=== PATIENT | male | born 1995 | race Caucasian/White ===

== ENCOUNTER 2023-06-29 13:04 | Emergency (ER) | payer OTHER, SELFPAY ==
--- NOTE | ~2023-06-29 | CT_ITS ---
EXAMINATION: CT ABDOMEN AND PELVIS WITHOUT CONTRAST CLINICAL INFORMATION: Right flank pain; history of colicky pain. COMPARISON: None available. TECHNIQUE: Multidetector volumetric imaging was performed from the superior aspect of the liver through the pubic symphysis. Sagittal and coronal reformatted images were obtained on the technologist's workstation. This CT examination was performed using dose optimization techniques as appropriate, variously including the following: *Automated exposure control *Adjustment of mA and/or kV according to patient size (this includes techniques or standardized protocols for targeted exams where dose is matched to indication/reason for exam; i.e. extremities or head) *Use of iterative reconstruction technique DLP: 362 mGy-cm FINDINGS: LUNG BASES: The visualized lung bases are unremarkable. LIVER, GALLBLADDER, AND BILIARY TREE: The liver is normal in size, shape, and attenuation. No focal hepatic lesion or biliary ductal dilatation is present. The gallbladder is unremarkable with no evidence of radiopaque gallstones, gallbladder wall thickening, or obvious pericholecystic inflammatory changes. PANCREAS: Unremarkable. SPLEEN: Unremarkable. ADRENAL GLANDS: Unremarkable. KIDNEYS AND URETERS: The kidneys are normal in size, shape, and attenuation. At the upper pole of the right kidney (3:249), a 3 mm nonobstructing calculus is seen. At the interpolar aspect of the right kidney (3:264, 291 and 295), 1 mm, 3 mm and 1 mm nonobstructing calculi are seen. There is moderate right hydronephrosis secondary to a 7 mm ovoid calculus seen at the ureteropelvic junction. At the upper pole of the left kidney (3:184), a 3 mm nonobstructing calculus is seen. There are adjacent 1 mm and 2 mm nonobstructing calculi (3:194 and 197). At the interpolar aspect of the left kidney (3:223 and 247), 5 mm and 3 mm nonobstructing calculi are seen. At the lower pole of the left kidney (3:275), a 6 mm nonobstructing calculus is seen. No left ureteric calculus or obstruction is noted. No significant perinephric stranding. BLADDER: Unremarkable. GASTROINTESTINAL TRACT: The small and large bowel are unremarkable. The appendix is unremarkable. ABDOMINAL WALL: No significant hernia is appreciated. LYMPH NODES: Normal. VASCULAR: Unremarkable. PELVIC VISCERA: The prostate and seminal vesicles are unremarkable. OSSEOUS STRUCTURES: Unremarkable. CT/CT abdomen pelvis wo IV con IMPRESSION: Multiple bilateral renal calculi are seen. There is moderate right hydronephrosis secondary to a 7 mm calculus situated at the ureteropelvic junction. Fleischner guidelines were followed.
[2023-06-29 13:09] VITALS: BP 132/80; BP 162/60; PULSE 101; PULSE 86; RESP 18; TEMP 35.9; O2SAT 100; O2SAT 98; BMI 20.3
[2023-06-29] MEDS: Ketorolac Tromethamine 30 MG/ML VIAL IM (13:36)
--- NOTE | 2023-06-29 13:40 | PC.NURSE ---
pt brought in via EMS with lower abdominal, lower right sided back pain. pt sts that he was diagnosed with an 8[facility] [place] Per pt he woke up around 1200 voided normally, then subsequently began having pain with hematuria. Per pt request, no IV intervention due to dx of PTSD. [employer] Misael Aware. toradol 30mg IM given per APR
[2023-06-29 13:44] VITALS: BP 131/76; PULSE 64; RESP 20; TEMP 36.6; O2SAT 98
[2023-06-29 13:57] LABS: Basophils Absolute Auto 0.1 X10*3/uL (0.0-0.2); Basophils Percent Auto 0.6 % (0-2); Eosinophils Absolute Auto 0.2 X10*3/uL (0.0-0.4); Eosinophils Percent Auto 2.2 % (0-4); Hematocrit 41.3 % (42.0-52.0); Hemoglobin 14.3 g/dl (14.0-18.0); Imm Gran Abs Auto 0.02 X10*3/uL (0.00-0.03); Imm Gran Pct Auto 0.3 % (0.0-0.4); Lymphocytes Absolute Auto 1.7 X10*3/uL (1.2-4.9); Lymphocytes Percent Auto 21.5 % (20-40); MANUAL DIFF FLAG NO; Mean Corpuscular HGB Conc 34.6 g/dl (31.0-36.0); Mean Corpuscular Hemoglobin 31.2 pg (27.0-33.0); Mean Corpuscular Volume 90.2 fL (80.0-98.0); Mean Platelet Volume 9.9 fL (9.4-12.4); Monocytes Absolute Auto 0.4 X10*3/uL (0.1-1.2); Monocytes Percent Auto 4.8 % (2-11); Neutrophils Absolute Auto 5.4 x10*3/uL (2.0-8.3); Neutrophils Percent Auto 70.6 % (45-73); Platelet Count 249 X10*3/uL (160-400); Red Blood Count 4.58 X10*6/uL (4.60-5.80); Red Cell Distribution Width 12.9 % (11.0-16.0); White Blood Count 7.7 X10*3/uL (4.8-10.8)
[2023-06-29] MEDS: hydrOXYzine HCL 50 MG TABLET PO (13:59)
--- NOTE | 2023-06-29 14:00 | ED_ITS ---
HPI - Abdominal Pain General Chief Complaint: Abdominal Pain Stated Complaint: PAIN TRYING TO PASS 8MM KIDNEY STONE PER EMS Time Seen by Provider: 06/29/23 13:07 Source: patient and EMS Mode of arrival: EMS Limitations: no limitations History of Present Illness HPI narrative: 27-year-old male with a history of PTSD, anxiety presents the ER with complaints of right-sided flank pain with radiates to the right abdomen for the last 2 days. Patient reports he was diagnosed [facility] with [facility]. He initially had vomiting. This is now resolved. No diarrhea, constipation. He did have some intermittent hematuria. No fevers or chills. Related Data Previous Rx's ?Medication ?Instructions ?Recorded oxycodone 5 mg tablet 5 mg PO Q8H PRN pain #9 tabs 06/29/23 Allergies Allergy/AdvReac Type Severity Reaction Status Date / Time No Known Allergies Allergy Verified 06/29/23 13:12 Review of Systems Review of Systems Yes all other systems are reviewed and are negative Constitutional: Reports no additional constitutional complaints, Denies body ache(s), Denies chills, Denies fever(s), Denies headache(s) and Denies weakness Eyes: Reports no additional eye complaints and Denies change in vision Reports system reviewed and no additional complaints, except as documented, Denies dizziness, Denies headache(s), Denies nasal congestion, Denies nasal discharge and Denies neck pain Cardiovascular: Reports no additional cardiovascular complaints, Denies chest pain, Denies leg edema and Denies dyspnea Respiratory: Reports no additional respiratory complaints, Denies cough and Denies dyspnea Gastrointestinal: Reports no additional gastrointestinal complaints, Reports abdominal pain, Denies diarrhea, Denies nausea and Denies vomiting Genitourinary: Reports hematuria and Denies urinary incontinence Musculoskeletal: Reports no additional musculoskeletal complaints, Reports back pain, Denies arthralgias, Denies joint swelling, Denies neck pain, Denies numbness and Denies tingling Skin/Breast: Reports system reviewed and no additional complaints, except as docu and Denies rash Reports system reviewed and no additional complaints, except as documented, Denies Abnormal speech present, Denies dizziness, Denies headache(s), Denies numbness, Denies tingling and Denies weakness [facility] Past Medical History Attestation statement: The following information was validated with the patient. Source: old records reviewed and nursing notes reviewed Social History Social History Smoked in Last 30 Days: No Advance Directives: No Advance Directives Information Provided: Yes Do you have a plan to hurt others: No Plan Physical Exam ED Vital Signs: Vital Signs - 24 hr 06/29/23 13:09 06/29/23 13:44 06/29/23 14:55 Temperature 96.7 F L 97.8 F 97.7 F Pulse Rate 86 64 64 Respiratory Rate 18 20 16 Blood Pressure 132/80 131/76 115/71 Pulse Oximetry 100 98 98 Oxygen Delivery Method Room Air Room Air Room Air BMI result Body Mass Index 20.3 Const General: cooperative, healthy appearing, comfortable and no acute distress Orientation/consciousness: patient oriented x3 Limitations: no limitations HENMT Head: Yes normal to inspection Ears: hearing grossly normal bilaterally General nose exam: Normal external nose present Face and sinus: Yes normal facial exam Mouth: Normal oral and palatal mucosa present Throat: Yes posterior oropharynx normal Eyes General: appearance normal, both eyes and all related structures Pupils: Equal, round and reactive pupils present Neck Neck: Yes normal visual inspection Chest Chest palpation & inspection: normal inspection of the chest Resp Effort & Inspection: normal respiratory effort Auscultation: clear to auscultation bilaterally Cardio Rate: regular rate Rhythm: regular rhythm Peripheral pulses: Peripheral pulses 2+ throughout GI Inspection: Yes normal to inspection Palpation (GI): Soft to palpation and Tenderness to palpation present (GI) in the RLQ Auscultation: normal bowel sounds General: Yes CVA tenderness (right ) Back/Spine/Pelvis Back: CVA tenderness (right ) Thoracic/Lumbar Spine: thoracic and lumbar spine normal to inspection Skin General skin exam: no rashes or lesions noted Neuro General: patient oriented x3, no focal motor deficits and normal sensation to monofilament Cranial nerves: Yes Equal, round and reactive pupils present Cognition (Neuro): normal cognition Speech: No Abnormal speech present Gait exam (Neuro): Normal gait present Motor exam (neuro): 5/5 motor strength present throughout Extrem General: Yes normal to inspection Course Course Course Narrative: 1530 CT shows IMPRESSION: Multiple bilateral renal calculi are seen. There is moderate right hydronephrosis secondary to a 7 mm calculus situated at the ureteropelvic junction. Urine pending. Still having pain, does not want IV. Will give IM morphine and re-assess. Reevaluation(s) Reevaluation #1: 1600-urine shows no signs of infection. Pain is well controlled. Patient is tolerating p.o.. I did explain the findings on the CT scan to the patient. He feels comfortable going home at this time. He will likely follow-up with [facility] however I did provide him our urologist number. I also sent his information to Dr. nAgulo via [employer]. Reviewed worrisome signs and symptoms of when to return to the emergency room. Comfortable plan for discharge home Of note patient has Flomax and ibuprofen at home Medical Decision Making Medical Decision Making MDM Narrative: 27-year-old male with a history of PTSD, anxiety presents the ER with complaints of right-sided flank pain with radiates to the right abdomen for the last 2 days.? Patient reports he was diagnosed at the [facility] with a kidney stone.? He initially had vomiting.? This is now resolved.? No diarrhea, constipation.? He did have some intermittent hematuria.? No fevers or chills. TTP RLQ, R CVAT Patient very anxious Will obtain labs, UA, CT Will provide analgesia. Severe needle phobia and does not want IV, okay labs and IM medications Differential Diagnosis Differential Diagnoses: The differential diagnosis associated with the presentation includes Renal colic, pyelonephritis Low suspicion for appendicitis as patient is status post appendectomy Admission/Observation Consideration of admission/observation: Escalation of care including admission/observation considered Patient with 7 mm kidney stone with moderate hydro with normal renal function and no signs of infection in urine with pain that is well controlled, tolerating p.o.. Can be discharged home with Urology outpatient follow-up. Consult Healthcare Provider Management of the patient was discussed with: Boardinghouse Keeper Patient's information was sent to Dr. Angulo from Urology for follow-up as needed Lab Data MDM Lab Attestation statement: I reviewed the patient's lab results. 06/29/23 13:51 06/29/23 13:51 Labs: Lab Results 06/29/23 06/29/23 Range/Units 13:51 15:23 WBC 7.7 (4.8-10.8) X10*3/uL RBC 4.58 L (4.60-5.80) X10*6/uL Hgb 14.3 (14.0-18.0) g/dl Hct 41.3 L (42.0-52.0) % MCV 90.2 (80.0-98.0) fL MCH 31.2 (27.0-33.0) pg MCHC 34.6 (31.0-36.0) g/dl RDW 12.9 (11.0-16.0) % Plt Count 249 (160-400) X10*3/uL MPV 9.9 (9.4-12.4) fL Immature Gran % (Auto) 0.3 (0.0-0.4) % Neut % (Auto) 70.6 (45-73) % Lymph % (Auto) 21.5 (20-40) % [place] % (Auto) 4.8 (2-11) % Eos % (Auto) 2.2 (0-4) % Baso % (Auto) 0.6 (0-2) % Lymph # (Auto) 1.7 (1.2-4.9) X10*3/uL [place] # (Auto) 0.4 (0.1-1.2) X10*3/uL Eos # (Auto) 0.2 (0.0-0.4) X10*3/uL Baso # (Auto) 0.1 (0.0-0.2) X10*3/uL Abs Immat Gran (auto) 0.02 (0.00-0.03) X10*3/uL Absolute Neuts (auto) 5.4 (2.0-8.3) x10*3/uL Absolute Nucleated RBC 0.000 (0.0-0.012) X10*3/uL Nucleated RBC % (auto) 0.0 (0.0-0.2) /100WBC Sodium 141 (135-145) mmol/L Potassium 4.2 (3.3-5.1) mmol/L Chloride 107 (96-108) mmol/L Carbon Dioxide 23 (22-29) mmol/L Anion Gap 15 (12-20) BUN 9 (9-16) mg/dL Creatinine 1.03 (0.5-1.4) mg/dL Estim Creat Clear Calc 87.8 Estimated GFR > 60 Random Glucose 122 H (60-115) mg/dL Calcium 9.6 (8.4-10.2) mg/dL Total Bilirubin 0.4 (0.0-1.0) mg/dL Direct Bilirubin 0.2 (0.0-0.5) mg/dL AST 13 (5-37) U/L ALT 11 (0-40) U/L Alkaline Phosphatase 70 (39-117) U/L Total Protein 7.0 (6.5-8.0) g/dL Albumin 4.3 (3.5-5.0) g/dL Lipase 19 (8-78) U/L Urine Color Yellow Urine Appearance Turbid Urine pH 7.0 (5.0-9.0) Ur Specific [place] 1.015 (1.005-1.025) Urine Protein Trace (Neg-Trace) mg/dL Urine Glucose (UA) Negative (Negative) mg/dL Urine Ketones Negative (Negative) mg/dL Urine Blood Large (3+) H (Negative) Urine Nitrite Negative (Negative) Ur Leukocyte Esterase Trace H (Negative) Urine RBC 11-20 H (0-2) /HPF Urine WBC 0-5 (0-5) /HPF Ur Squamous Epith Cells 0-2 (0-2) /HPF Urine Bacteria None Seen (None Seen) Hyaline Casts 0-2 (0-2) /LPF Independent Interpretation I performed an independent interpretation of an: CT Scan Interpretation: I independently reviewed the CT scan agree with the radiology report Radiology Impression Discussion of test interpretation with radiology: I have reviewed the radiologist's reading. Radiologist Impression: Launch?Image [place] [id number] CT Scan Report Signed Patient: Greg Merino MR#: [id number] : 1995 Acct:[id number] Age/Sex: 27 / M ADM Date: 06/29/23 Loc: HO.ED Attending Dr: Ordering Physician: Carola Gilmore NP Date of Service: 06/29/23 Procedure(s): CT abdomen pelvis wo IV con Accession Number(s): [id number] cc: Physician,Unknown ; Carola Gilmore NP~ EXAMINATION: CT ABDOMEN AND PELVIS WITHOUT CONTRAST CLINICAL INFORMATION: Right flank pain; history of colicky pain. COMPARISON: None available. TECHNIQUE: Multidetector volumetric imaging was performed from the superior aspect of the liver through the pubic symphysis. Sagittal and coronal reformatted images were obtained on the technologist's workstation. This CT examination was performed using dose optimization techniques as appropriate, variously including the following: *Automated exposure control *Adjustment of mA and/or kV according to patient size (this includes techniques or standardized protocols for targeted exams where dose is matched to indication/reason for exam; i.e. extremities or head) *Use of iterative reconstruction technique DLP: 362 mGy-cm FINDINGS: LUNG BASES: The visualized lung bases are unremarkable. LIVER, GALLBLADDER, AND BILIARY TREE: The liver is normal in size, shape, and attenuation. No focal hepatic lesion or biliary ductal dilatation is present. The gallbladder is unremarkable with no evidence of radiopaque gallstones, gallbladder wall thickening, or obvious pericholecystic inflammatory changes. PANCREAS: Unremarkable. SPLEEN: Unremarkable. ADRENAL GLANDS: Unremarkable. KIDNEYS AND URETERS: The kidneys are normal in size, shape, and attenuation. At the upper pole of the right kidney (3:249), a 3 mm nonobstructing calculus is seen. At the interpolar aspect of the right kidney (3:264, 291 and 295), 1 mm, 3 mm and 1 mm nonobstructing calculi are seen. There is moderate right hydronephrosis secondary to a 7 mm ovoid calculus seen at the ureteropelvic junction. At the upper pole of the left kidney (3:184), a 3 mm nonobstructing calculus is seen. There are adjacent 1 mm and 2 mm nonobstructing calculi (3:194 and 197). At the interpolar aspect of the left kidney (3:223 and 247), 5 mm and 3 mm nonobstructing calculi are seen. At the lower pole of the left kidney (3:275), a 6 mm nonobstructing calculus is seen. No left ureteric calculus or obstruction is noted. No significant perinephric stranding. BLADDER: Unremarkable. GASTROINTESTINAL TRACT: The small and large bowel are unremarkable. The appendix is unremarkable. ABDOMINAL WALL: No significant hernia is appreciated. LYMPH NODES: Normal. VASCULAR: Unremarkable. PELVIC VISCERA: The prostate and seminal vesicles are unremarkable. OSSEOUS STRUCTURES: Unremarkable. CT/CT abdomen pelvis wo IV con IMPRESSION: Multiple bilateral renal calculi are seen. There is moderate right hydronephrosis secondary to a 7 mm calculus situated at the ureteropelvic junction. Fleischner guidelines were followed. Independent Historian Clinical information obtained from an independent historian. History obtained from or confirmed by: EMS Prescription Management I considered prescription management with: Pain Medication Medications Administered Discontinued Medications Generic Name Dose Route Start Last Admin Trade Name Freq PRN Reason Stop Dose Admin Hydroxyzine HCl 50 mg 06/29/23 13:44 06/29/23 13:59 Hydroxyzine Hcl 50 Mg Tablet PO 06/29/23 13:45 50 mg ONCE ONE Administration Ketorolac Tromethamine 30 mg 06/29/23 13:31 06/29/23 13:36 Ketorolac Tromethamine 30 Mg/Ml Vial IM 06/29/23 13:32 30 mg ONCE ONE Administration Morphine Sulfate 4 mg 06/29/23 15:18 06/29/23 15:29 Morphine Sulfate 4 Mg/Ml Cartridge IM 06/29/23 15:19 4 mg ONCE ONE Administration Protocol Discharge Plan Discharge Clinical Impression: Calculus of kidney Patient Disposition: Home, Self-Care Instructions: Kidney Stones (ED) Additional Instructions: You may follow-up with Urology at [place] if they have Urology or our urologist here. Please return for any worsening symptoms. Take ibuprofen 3 times a day for pain and then the oxycodone if you need it. Continue Flomax. Increase fluids. Prescriptions: New oxycodone 5 mg tablet 5 mg PO Q8H PRN (Reason: pain) Qty: 9 0RF Rx Instructions: Partial Fill upon patient request. Referrals: Anthony Angulo MD [Physician] - 3 days Print Language: Congolese
[2023-06-29 14:15] LABS: Alanine Aminotransferase 11 U/L (0-40); Albumin Level 4.3 g/dL (3.5-5.0); Alkaline Phosphatase 70 U/L (39-117); Anion Gap 15 (12-20); Aspartate Amino Transferase 13 U/L (5-37); Bilirubin Direct 0.2 mg/dL (0.0-0.5); Bilirubin Total 0.4 mg/dL (0.0-1.0); Blood Urea Nitrogen 9 mg/dL (9-16); Calcium 9.6 mg/dL (8.4-10.2); Carbon Dioxide 23 mmol/L (22-29); Chloride 107 mmol/L (96-108); Creatinine Clr Calc Pharmacy 87.8; Estimated Glomerular Filt Rate > 60; Glucose Random 122 mg/dL (60-115); Lipase 19 U/L (8-78); Potassium 4.2 mmol/L (3.3-5.1); Sodium 141 mmol/L (135-145)
[2023-06-29 14:55] VITALS: BP 115/71; PULSE 64; RESP 16; TEMP 36.5; O2SAT 98
[2023-06-29] MEDS: Morphine Sulfate 4 MG/ML CARTRIDGE IM (15:29)
[2023-06-29 15:31] LABS: Appearance Urine Turbid; Color Urine Yellow; Glucose Urine UA Negative (Negative); Leukocyte Esterase Urine Trace (Negative); Nitrite Urine Negative (Negative); Specific Gravity - Urine 1.015 (1.005-1.025); UMIC TRIGGER UACC YES; Urine Blood Large (3+) (Negative); Urine Ketones Negative (Negative); Urine Protein Trace mg/dL (Neg-Trace)
--- NOTE | 2023-06-29 15:33 | PC.NURSE ---
pt medicated Per MAR
[2023-06-29 15:55] LABS: Bacteria Urine None Seen (None Seen); Hyaline Casts Urine 0-2 /LPF (0-2); Squamous Epithelial Cell Urine 0-2 /HPF (0-2); WBC Urine 0-5 /HPF (0-5)
[2023-06-29] MEDS: Tamsulosin HCL 0.4 MG CAPSULE PO (16:19)
[2023-06-29] MEDS: oxyCODONE HCl Immed Release 5 MG TABLET PO (16:19)
[2023-06-29 16:35] VITALS: BP 115/71; PULSE 64; RESP 16; TEMP 36.5; O2SAT 98
== END 2023-06-29 16:35 | disposition home or self-care (01) ==
PROVIDERS: Nurse Practitioner Family; Emergency Provider Emergency Medicine
DX: N13.2 Hydronephrosis with renal and ureteral calculous obstruction (principal)
CPT/HCPCS: 36415; 74176; 80048; 80076; 81001; 83690; 85025; 96372; 99284; J1885; J2270

== ENCOUNTER 2023-07-01 05:48 | Day surgery (SDC) | payer OTHER, SELFPAY ==
[2023-07-01] VITALS (11 sets, daily range): BP systolic 110–136; BP diastolic 66–92; PULSE 57–80; RESP 14–20; TEMP 36.2–36.9; O2SAT 96–100; BMI 20.2
--- NOTE | ~2023-07-01 | US_ITS ---
EXAMINATION: US RENAL, RIGHT CLINICAL INFORMATION: Renal stones. History of right hydronephrosis caused by 7 mm stone at ureteropelvic junction. COMPARISON: CT abdomen from 06/29/2023. TECHNIQUE: Sonographic imaging of the right kidney is performed. FINDINGS: The right kidney measures 10.7 x 4 x 6 cm (sagittal x AP x transverse dimension). The renal cortex is normal echotexture and thickness. [id number] hydronephrosis is present. The small calyceal stones observed on CT imaging are not well shown sonographically. 0.7 cm stone is seen in the region of the ureteropelvic junction (image 25 of 30). No perinephric fluid collection. Urinary bladder has a normal appearance. A right ureteral jet is visualized. No bladder calculi. US/US renal RT IMPRESSION: [id number] right hydronephrosis is caused by a stone in the region of the ureteropelvic junction.
--- NOTE | ~2023-07-01 | FL_ITS ---
EXAMINATION: Intraoperative fluoroscopy CLINICAL INFORMATION: Cystoscopy, stent COMPARISON: Renal ultrasound 07/01/2023 TECHNIQUE: Intraoperative fluoroscopy was provided for use by Dr. Angulo. A total of 2 images were saved to PACS. A radiologist was not present during imaging. Today's dictation is only for administrative purposes to document intraoperative fluoroscopic usage. TOTAL FLUOROSCOPIC TIME: 34 seconds DAP: 4.36 mGy FL/FL guidance in OR FINDINGS~\^^ Intraoperative fluoroscopy provided for use by Dr. Angulo. Please see operative note for detailed findings.
--- NOTE | 2023-07-01 06:13 | PC.NURSE ---
pt biba from home, a&ox4, respirations even and unlabored, reports being [place] [facility] [place] and being diagnosed with 6 kidney stones, pt reports increasing bilateral flank pain since. reports taking 10mg of oxycodone prior to arrival. pt reports oxycodone provided some relief. at this time, pt reports he does not want to change into a hospital gown/get an IV at this time due to past trauma.
--- NOTE | 2023-07-01 07:07 | ED.MALEGU ---
HPI - Male Genitourinary General Chief complaint: Urogenital-Male Stated complaint: kidney stones Time Seen by Provider: 07/01/23 07:07 History of Present Illness HPI Narrative: The patient is a 27-year-old male with a history of an appendectomy who was seen here 2 days ago for right-sided flank pain and was found to have a 7 mm ureteral stone at the right ureteropelvic junction. He was discharged to follow up with Urology but his pain was too much and he came back to the emergency room today because of the pain. No fevers. Related Data Previous Rx's ?Medication ?Instructions ?Recorded oxycodone 5 mg tablet 5 mg PO Q8H PRN pain #9 tabs 06/29/23 Allergies Allergy/AdvReac Type Severity Reaction Status Date / Time No Known Allergies Allergy Verified 07/01/23 06:00 Review of Systems Review of Systems: Yes all other systems are reviewed and are negative PMFSH Social History Social History Alcohol intake: never Smoked in Last 30 Days: No Use of substances other than those prescribed or required for medical reasons: Yes Substance Use Type: Marijuana Substance Use Frequency: Daily Advance Directives: No Advance Directives Information Provided: Yes Do you have a plan to hurt others: No Plan Physical Exam Vital Signs: Vital Signs: Last Vital Signs Temp 98.2 F 07/01/23 05:54 Pulse 65 07/01/23 08:47 Resp 19 07/01/23 08:47 BP 110/66 07/01/23 08:47 Pulse Ox 98 07/01/23 08:47 O2 Del Method Room Air 07/01/23 05:54 BMI result Body Mass Index 20.2 Const: Other: The patient is a slim 27-year-old male who was awake and alert and does not appear in overt distress. HEENT: Other: Face is symmetrical, mucous membranes moist Eyes: Other: Pupils are round equal, conjunctivae clear Neck: Other: Moving neck easily Resp: Effort & Inspection: normal respiratory effort Auscultation: clear to auscultation bilaterally Cardio: Rate: regular rate Rhythm: regular rhythm Heart sounds: S1 normal heart sound present and S2 normal heart sound present GI: Other: No significant abdominal tenderness : Other: Right-sided CVA percussion tenderness positive Skin: Other: Skin is dry and unremarkable Neuro: Other: Awake, alert, appropriate, grossly neurologically intact. Extrem: Other: No peripheral edema Medications Administered Discontinued Medications Generic Name Dose Route Start Last Admin Trade Name Aly PRN Reason Stop Dose Admin Hydromorphone HCl 1 mg 07/01/23 08:40 07/01/23 08:44 Hydromorphone Hcl 1 Mg/Ml Syringe IM 07/01/23 08:41 1 mg ONCE ONE Administration Protocol Ketorolac Tromethamine 30 mg 07/01/23 07:14 07/01/23 07:31 Ketorolac Tromethamine 30 Mg/Ml Vial IM 07/01/23 07:15 30 mg ONCE ONE Administration Medical Decision Making Medical Decision Making [facility] Narrative: The patient is a 27-year-old male with a history of previous kidney stones who was seen here 2 days ago for a new kidney stone episode. Two days ago he had a CT scan that showed a proximal 7 mm stone at the right ureteropelvic junction. He was discharged with pain medications and outpatient follow up. He has been unable to arrange outpatient follow up and has had worsening pain and so returned to the emergency room this morning. No fevers, sweats, chills. He has pain in the right flank and in the right lower abdomen. He has a history of appendicitis. Ultrasound today shows the 7 mm stone at the right UPJ, essentially in an unchanged position. I consulted Dr. Angulo of Urology in the patient will be hospitalized for further care. Lab Data 07/01/23 08:30 07/01/23 08:30 Labs: Lab Results 07/01/23 Range/Units 08:30 WBC 9.8 (4.8-10.8) X10*3/uL RBC 4.14 L (4.60-5.80) X10*6/uL Hgb 13.0 L (14.0-18.0) g/dl Hct 37.7 L (42.0-52.0) % MCV 91.1 (80.0-98.0) fL MCH 31.4 (27.0-33.0) pg MCHC 34.5 (31.0-36.0) g/dl RDW 12.8 (11.0-16.0) % Plt Count 175 D (160-400) X10*3/uL MPV 9.9 (9.4-12.4) fL Immature Gran % (Auto) 0.2 (0.0-0.4) % Neut % (Auto) 72.8 (45-73) % Lymph % (Auto) 15.7 L (20-40) % [place] % (Auto) 9.7 (2-11) % Eos % (Auto) 1.3 (0-4) % Baso % (Auto) 0.3 (0-2) % Lymph # (Auto) 1.5 (1.2-4.9) X10*3/uL [place] # (Auto) 1.0 (0.1-1.2) X10*3/uL Eos # (Auto) 0.1 (0.0-0.4) X10*3/uL Baso # (Auto) 0.0 (0.0-0.2) X10*3/uL Abs Immat Gran (auto) 0.02 (0.00-0.03) X10*3/uL Absolute Neuts (auto) 7.2 (2.0-8.3) x10*3/uL Absolute Nucleated RBC 0.000 (0.0-0.012) X10*3/uL Nucleated RBC % (auto) 0.0 (0.0-0.2) /100WBC Sodium 141 (135-145) mmol/L Potassium 3.9 (3.3-5.1) mmol/L Chloride 104 (96-108) mmol/L Carbon Dioxide 28 (22-29) mmol/L Anion Gap 13 (12-20) BUN 8 L (9-16) mg/dL Creatinine 1.04 (0.5-1.4) mg/dL Estim Creat Clear Calc 91.9 Estimated GFR > 60 Random Glucose 105 (60-115) mg/dL Calcium 9.8 (8.4-10.2) mg/dL Total Bilirubin 0.5 (0.0-1.0) mg/dL Direct Bilirubin 0.2 (0.0-0.5) mg/dL AST 50 H (5-37) U/L ALT 98 H (0-40) U/L Alkaline Phosphatase 68 (39-117) U/L C-Reactive Protein 0.39 (< or = 0.50) mg/dL Total Protein 6.7 (6.5-8.0) g/dL Albumin 4.1 (3.5-5.0) g/dL Urine Color Straw Urine Appearance Clear Urine pH 6.5 (5.0-9.0) Ur Specific [place] <= 1.005 (1.005-1.025) Urine Protein Negative (Neg-Trace) mg/dL Urine Glucose (UA) Negative (Negative) mg/dL Urine Ketones Negative (Negative) mg/dL Urine Blood Moderate (2+) H (Negative) Urine Nitrite Negative (Negative) Ur Leukocyte Esterase Negative (Negative) Urine RBC 0-2 (0-2) /HPF Urine WBC 0-5 (0-5) /HPF Ur Squamous Epith Cells 0-2 (0-2) /HPF Urine Bacteria None Seen (None Seen) Hyaline Casts 0-2 (0-2) /LPF Discharge Plan Discharge Clinical Impression: Acute right flank pain, Calculus of proximal right ureter Patient Disposition: Admitted As Inpatient Print Language: [place]
[2023-07-01] MEDS: Ketorolac Tromethamine 30 MG/ML VIAL IM (07:31)
[2023-07-01 08:36] LABS: MANUAL DIFF FLAG NO
[2023-07-01 08:38] LABS: Basophils Percent Auto 0.3 % (0-2); Eosinophils Absolute Auto 0.1 X10*3/uL (0.0-0.4); Eosinophils Percent Auto 1.3 % (0-4); Hematocrit 37.7 % (42.0-52.0); Imm Gran Abs Auto 0.02 X10*3/uL (0.00-0.03); Imm Gran Pct Auto 0.2 % (0.0-0.4); Lymphocytes Absolute Auto 1.5 X10*3/uL (1.2-4.9); Lymphocytes Percent Auto 15.7 % (20-40); Mean Corpuscular HGB Conc 34.5 g/dl (31.0-36.0); Mean Corpuscular Hemoglobin 31.4 pg (27.0-33.0); Mean Corpuscular Volume 91.1 fL (80.0-98.0); Mean Platelet Volume 9.9 fL (9.4-12.4); Monocytes Percent Auto 9.7 % (2-11); Neutrophils Absolute Auto 7.2 x10*3/uL (2.0-8.3); Neutrophils Percent Auto 72.8 % (45-73); Platelet Count 175 X10*3/uL (160-400); Red Blood Count 4.14 X10*6/uL (4.60-5.80); Red Cell Distribution Width 12.8 % (11.0-16.0); White Blood Count 9.8 X10*3/uL (4.8-10.8)
[2023-07-01] MEDS: HYDROmorphone HCl 1 MG/ML SYRINGE IM (08:44)
[2023-07-01 08:47] LABS: Appearance Urine Clear; Color Urine Straw; Glucose Urine UA Negative (Negative); Leukocyte Esterase Urine Negative (Negative); Nitrite Urine Negative (Negative); PH 6.5 (5.0-9.0); Specific Gravity - Urine <= 1.005 (1.005-1.025); UMIC TRIGGER UACC YES; Urine Blood Moderate (2+) (Negative); Urine Ketones Negative (Negative); Urine Protein Negative (Neg-Trace)
[2023-07-01 08:49] LABS: Bacteria Urine None Seen (None Seen); Hyaline Casts Urine 0-2 /LPF (0-2); RBC Urine 0-2 /HPF (0-2); Squamous Epithelial Cell Urine 0-2 /HPF (0-2); WBC Urine 0-5 /HPF (0-5)
[2023-07-01 08:56] LABS: Alanine Aminotransferase 98 U/L (0-40); Albumin Level 4.1 g/dL (3.5-5.0); Alkaline Phosphatase 68 U/L (39-117); Anion Gap 13 (12-20); Aspartate Amino Transferase 50 U/L (5-37); Bilirubin Direct 0.2 mg/dL (0.0-0.5); Bilirubin Total 0.5 mg/dL (0.0-1.0); Blood Urea Nitrogen 8 mg/dL (9-16); C Reactive Protein 0.39 mg/dL (< or = 0.50); Calcium 9.8 mg/dL (8.4-10.2); Carbon Dioxide 28 mmol/L (22-29); Chloride 104 mmol/L (96-108); Creatinine Clr Calc Pharmacy 91.9; Estimated Glomerular Filt Rate > 60; Glucose Random 105 mg/dL (60-115); Potassium 3.9 mmol/L (3.3-5.1); Sodium 141 mmol/L (135-145); Total Protein 6.7 g/dL (6.5-8.0)
--- NOTE | 2023-07-01 10:15 | PM.UROCN ---
History of Present Illness Consult details Consult date: 07/01/23 Narrative: CC: Right proximal ureteric stone 27-year-old male Presents with persistent right flank pain associated with nausea Had been seen 2 days ago in emergency room with CT scan showing 8 mm proximal right ureteric stone Ultrasound confirmed stone still in position Has not had stone in past There is moderate right hydronephrosis secondary to a 7 mm calculus situated at the ureteropelvic junction Calcium 9.8, creatinine 1.0 Recommend cystoscopy, right retrograde, right stent placement Review of Systems Constitutional: Constitutional: Reports as per HPI and Reports no additional constitutional complaints Cardiovascular: Cardiovascular: Reports as per HPI and Reports no additional cardiovascular complaints Respiratory: Respiratory: Reports as per HPI and Reports no additional respiratory complaints Gastrointestinal: Gastrointestinal: Reports as per HPI and Reports no additional gastrointestinal complaints Genitourinary: Genitourinary: Reports as per HPI Musculoskeletal: Musculoskeletal: Reports no additional musculoskeletal complaints and Reports as per HPI Neurologic: Reports system reviewed and no additional complaints, except as documented and Reports as per HPI [facility] [place] Social History Social History Alcohol intake: never Smoked in Last 30 Days: No Use of substances other than those prescribed or required for medical reasons: Yes Substance Use Type: Marijuana Substance Use Frequency: Daily Advance Directives: No Advance Directives Information Provided: Yes Do you have a plan to hurt others: No Plan Meds Allergies Allergy/AdvReac Type Severity Reaction Status Date / Time No Known Allergies Allergy Verified 07/01/23 06:00 Active Medications: Current Medications Levofloxacin (Levaquin) 500 mg in 100 mls @ 100 mls/hr IV PREOP ONE Stop: 07/01/23 10:52 Sodium Chloride (Ns) 1,000 mls @ 999 mls/hr IV .Q1H1M TRAVIS Stop: 07/01/23 11:15 Physical Exam Vital Signs: Vital Signs: Last Vital Signs Temp 98.2 F 07/01/23 05:54 Pulse 65 07/01/23 08:47 Resp 19 07/01/23 08:47 BP 110/66 07/01/23 08:47 Pulse Ox 98 07/01/23 08:47 O2 Del Method Room Air 07/01/23 05:54 BMI result Body Mass Index 20.2 Const: General: cooperative, healthy appearing, comfortable and no acute distress Orientation/consciousness: patient oriented x3 HEENT: Face and sinus: Yes normal facial exam Mouth: moist mucous membranes Neck: Neck: Yes normal visual inspection, Yes full ROM and Yes trachea midline Chest: Chest palpation & inspection: normal inspection of the chest Resp: Effort & Inspection: normal respiratory effort, able to speak in complete sentences and no respiratory distress GI: Inspection: Yes normal to inspection Back/Spine/Pelvis: Cervical Spine: normal cervical lordosis Thoracic/Lumbar Spine: thoracic and lumbar spine normal to inspection Skin: General skin exam: no rashes or lesions noted Neuro: General: patient oriented x3, tone normal and moves all extremities Extrem: General: Yes normal to inspection and Yes capillary refill normal Results Labs 07/01/23 08:30 07/01/23 08:30 Labs: Abnormal lab results 07/01/23 Range/Units 08:30 RBC 4.14 L (4.60-5.80) X10*6/uL Hgb 13.0 L (14.0-18.0) g/dl Hct 37.7 L (42.0-52.0) % Lymph % (Auto) 15.7 L (20-40) % BUN 8 L (9-16) mg/dL AST 50 H (5-37) U/L ALT 98 H (0-40) U/L Urine Blood Moderate (2+) H (Negative) Short CBC 07/01/23 Range/Units 08:30 WBC 9.8 (4.8-10.8) X10*3/uL Hgb 13.0 L (14.0-18.0) g/dl Hct 37.7 L (42.0-52.0) % Plt Count 175 D (160-400) X10*3/uL BMP 07/01/23 08:30 Sodium 141 Potassium 3.9 Chloride 104 Carbon Dioxide 28 BUN 8 L Creatinine 1.04 Calcium 9.8 Liver Function 07/01/23 Range/Units 08:30 Total Bilirubin 0.5 (0.0-1.0) mg/dL Direct Bilirubin 0.2 (0.0-0.5) mg/dL AST 50 H (5-37) U/L ALT 98 H (0-40) U/L Alkaline Phosphatase 68 (39-117) U/L Albumin 4.1 (3.5-5.0) g/dL Urine 07/01/23 Range/Units 08:30 Urine Color Straw Urine Appearance Clear Urine pH 6.5 (5.0-9.0) Ur Specific [place] <= 1.005 (1.005-1.025) Urine Protein Negative (Neg-Trace) mg/dL Urine Glucose (UA) Negative (Negative) mg/dL All other labs normal. Assessment and Plan (1) Calculus of proximal right ureter: Status: Acute (2) Acute right flank pain: Status: Acute Plan Risks, benefits and alternatives to therapy were discussed. These include but are not limited to infection, bleeding, damage to local organs and tissues, need for further interventions. Anesthetic risks regarding cardiac arrhythmia, blood clots, and potential mortality were discussed. The patient understands the typical recovery time and the outpatient nature of the procedure. After consideration of these risks the patient gives full informed consent and they wish to move ahead with the procedure. Cystoscopy, right retrograde, right stent placement Procedures Date of Service Date of Service: 07/01/23
[2023-07-01] MEDS: LORazepam 2 MG/ML VIAL IM (10:46)
[2023-07-01] MEDS: 0.9 % Sodium Chloride 1,000 ML 999 ML IV (11:38)
--- NOTE | 2023-07-01 12:03 | PC.NURSE ---
Assumed care of this patient at 1100, patient resting quietly on bed, previously medicated for anxiety RE: IV stick. Asked patient if they were ready for IV insertion, 20 L upper arm inserted, fluids running per mar, abx to be started in pre op per order. No issues noted at this time.
--- NOTE | 2023-07-01 13:18 | PC.NURSE ---
Spoke to short stay surgery for report, RN thinks he will be picked up around 1500
--- NOTE | 2023-07-01 13:19 | PHA.MEDREC ---
Pharmacy Consult ? Medication Reconciliation Pharmacy has completed the medication reconciliation. Patient reported medications. Yessica Jovel, HayleyD
--- NOTE | 2023-07-01 13:36 | PC.NURSE ---
Patient informed that report had been given to short stay surgery, patient had many questions about what happens in pre op, and if he would be able to go home after the procedure. Answered all questions, patient verbalized understanding. Patient endorses anxiety about procedure and staying overnight in the hospital, reassured providers will assess and explain the plan to him once he is upstairs. Patient does not want to change into hospital attire until last possible second , informed patient he has to be in [facility] upon arrival to pre op area, patient verbalized understanding.
--- NOTE | 2023-07-01 16:30 | PC.NURSE ---
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 Asked them to call ER when/if they know a time.
--- NOTE | 2023-07-01 18:29 | MHC.SHP ---
Pre-Procedural Eval Section A - 24 Hr Update-Section A only Date of Service: 07/01/23 The patient is an INPATIENT: No Changes since office visit: No Cold of Flu in the past 2 weeks, No New Medical Problems, No Changes in Medication and No Patient answered all questions The patient has been examined within 24 hours of the surgical procedure. The History & Physical has been completed within 30 days and I have reviewed it.: Yes Section B - Complete if H&P > 30 days Chief Complaint: kidney stones Details of Present Illness: Cysto, right retrograde, right stent placement Relevant Social History: None Present Medications: see Short Stay Collaborative assessment Medical History: No relevant PMH History of Previous Operations: No relevant previous surgery Allergies: Allergies Allergy/AdvReac Type Severity Reaction Status Date / Time No Known Allergies Allergy Verified 07/01/23 06:00 Review of Systems Sugical H&P ROS: Negative: Constitution, Cardiovascular, Respiratory, Neurological, Psychiatric, Hem-Onc, Allergic/Immunologic, Gastrointestinal, Genitourinary, Musculoskeletal, Integumentary, Endocrine and Eyes/Ears/Nose/Throat Exam Surgical H&P Exam: Normal: HEENT, Normal: Heart, Normal: Lungs, Normal: Extremities, Normal: Abdomen, Normal: Skin and Normal: Neurological Plan Diagnosis/Plan: Unchanged (Cystoscopy, right retrograde, right stent placed) I have reviewed the history and physical and performed a pertinent physical examination on my patient. No changes have occurred unless specified. Time Spent With Patient Time: Total time managing care of this patient today ____ minutes.
--- NOTE | 2023-07-01 18:34 | P.CONAN_ITS ---
HPI - Anesthesia Eval Consult details Narrative: Rt. ureter stone PMFSH Active Problems Active Problems: All Active Problems Calculus of proximal right ureter (Acute) Acute right flank pain (Acute) Past Medical History Medical History (Updated 07/01/23 @ 18:35 by Anthony Cancino MD) Post traumatic stress disorder (PTSD) Family History Family history of problems with anesthesia: No Surgical History History of Problems with Anesthesia: No Social History Social History Alcohol intake: never Patient Tobacco Use Status: Current everyday Tobacco user Tobacco use type: Smokeless Tobacco Smoked in Last 30 Days: Yes Patient Interested in Nicotine Replacement: No Use of substances other than those prescribed or required for medical reasons: Yes Substance Use Type: Marijuana Substance Use Frequency: Daily Advance Directives: No Advance Directives Information Provided: Yes Do you have a plan to hurt others: No Plan Meds Allergies Allergy/AdvReac Type Severity Reaction Status Date / Time No Known Allergies Allergy Verified 07/01/23 06:00 Home Medications ?Medication ?Instructions ?Recorded ?Confirmed ?Last Taken ?Type cholecalciferol (vitamin D3) 25 25 mcg PO DAILY 07/01/23 07/01/23 Unknown History mcg (1,000 unit) tablet cyanocobalamin (vitamin B-12) 1,000 mcg PO DAILY 07/01/23 07/01/23 Unknown History 1,000 mcg tablet gabapentin 600 mg tablet 600 mg PO BEDTIME 07/01/23 07/01/23 Unknown History melatonin 5 mg tablet 5 mg PO BEDTIME Insomnia 07/01/23 07/01/23 Unknown History mirtazapine 15 mg tablet 7.5 mg PO DAILY 07/01/23 07/01/23 Unknown History mirtazapine 15 mg tablet 37.5 mg PO BEDTIME 07/01/23 07/01/23 Unknown History zolpidem 5 mg tablet (Ambien) 5 mg PO BEDTIME PRN Insomnia 07/01/23 07/01/23 Unknown History Exam Height,Weight and Vital Signs: Height 5 ft 8 in Weight 60.4 kg Last Vital Signs Temp 98.5 F 07/01/23 18:13 Pulse 62 07/01/23 18:13 Resp 20 07/01/23 18:13 BP 119/81 07/01/23 18:13 Pulse Ox 100 07/01/23 18:13 O2 Del Method Room Air 07/01/23 18:13 Pertinent Lab Results Pertinent Lab Results: Laboratory Tests 07/01/23 08:30 WBC 9.8 RBC 4.14 L Hgb 13.0 L Hct 37.7 L MCV 91.1 MCH 31.4 MCHC 34.5 RDW 12.8 Plt Count 175 D MPV 9.9 Immature Gran % (Auto) 0.2 Neut % (Auto) 72.8 Lymph % (Auto) 15.7 L Weber % (Auto) 9.7 Eos % (Auto) 1.3 Baso % (Auto) 0.3 Lymph # (Auto) 1.5 Weber # (Auto) 1.0 Eos # (Auto) 0.1 Baso # (Auto) 0.0 Abs Immat Gran (auto) 0.02 Absolute Neuts (auto) 7.2 Absolute Nucleated RBC 0.000 Nucleated RBC % (auto) 0.0 Sodium 141 Potassium 3.9 Chloride 104 Carbon Dioxide 28 Anion Gap 13 BUN 8 L Creatinine 1.04 Estim Creat Clear Calc 91.9 Estimated GFR > 60 Random Glucose 105 Calcium 9.8 Total Bilirubin 0.5 Direct Bilirubin 0.2 AST 50 H ALT 98 H Alkaline Phosphatase 68 C-Reactive Protein 0.39 Total Protein 6.7 Albumin 4.1 Urine Color Straw Urine Appearance Clear Urine pH 6.5 Ur Specific [place] <= 1.005 Urine Protein Negative Urine Glucose (UA) Negative Urine Ketones Negative Urine Blood Moderate (2+) H Urine Nitrite Negative Ur Leukocyte Esterase Negative Urine RBC 0-2 Urine WBC 0-5 Ur Squamous Epith Cells 0-2 Urine Bacteria None Seen Hyaline Casts 0-2 Airway Mallampati Class: II TM Dist: >3cm Neck ROM: Full Loose/Missing/Broken Teeth: No Heart: RRR Lungs: CTA Assessment and Plan Assessment Anesthesia Assessment: Anesthesia Plan Discussed and Chart Reviewed Final Anesthetic Review Family History of Problems with Anesthesia: No History of Problems with Anesthesia: No NPO: Yes ASA Class: II and Emergency Final Preanesthetic Review: No Changes in Pt Med Stat, Meds/Allgs Chart Reviewed, Consent Obtained/Reviewed and Anes Risks/Benef Reviewed Patient Risk: Intermediate Procedure Risk: Low Anesthetic Plan Anesthetic Plan: GA Disposition: Standard PACU
--- NOTE | 2023-07-01 19:16 | P.OP_ITS ---
Operative Note Operative Note Date of Service: 07/01/23 Narrative: PreOperative Diagnosis: Right obstructing upper ureteric stone Post Operative Diagnosis: Right obstructing up ureteric stone Procedure: Cystoscopy, right retrograde, right stent placement Surgeon: Dr Anthony Angulo Anesthesia: LMA Indications for procedure: Presentation through emergency room Procedure: After informed consent was verified the patient was brought to the operating room and placed in a supine position. Anesthesia was administered per protocol. The patient was placed in modified dorsal lithotomy position and prepped and draped in a sterile fashion. A safety pause time-out was performed. Laterality of procedure and antibiotics were confirmed, appropriate imaging was available A 22 [place] cystoscope was introduced per urethra. No abnormality was noted of urethra or bladder. Both ureteric orifices were seen in a normal position. The right ureter was cannulated with an open ended catheter and a retrograde examination was performed. Filling defect proximal right ureter . A Sensor guidewire was placed under fluoroscopy and a good coil was seen within the renal pelvis. A 6 [place] by 26 cm double J stent was advanced over the wire and up to the level of the renal pelvis under fluoroscopic and direct visualization. The stent was seen with appropriate coil within the renal pelvis and in the bladder after deployment. The patient tolerated the procedure well and was transferred in a stable condition to the recovery area. Pathology: Drains: Stent as above
[2023-07-01] MEDS: Phenazopyridine HCL 100 MG TABLET PO (19:34)
[2023-07-01] MEDS: oxyCODONE HCl Immed Release 5 MG TABLET PO (19:34)
--- NOTE | 2023-07-02 08:15 | MHC.CM.PN ---
Patient discharged before being seen by case management.
== END 2023-07-01 20:10 | disposition home or self-care (01) ==
LOC: HO.ED 19:14 → HO.SSS 19:19
PROVIDERS: Emergency Provider Emergency Medicine; PCP Nurse Practitioner Family; Visit Provider Urology
PROC: (CPT 52332; principal; 2023-07-01 16:00)
DX: N20.1 Calculus of ureter (principal); Z87.442 Personal history of urinary calculi; Z87.19 Personal history of other diseases of the digestive system; F43.10 Post-traumatic stress disorder, unspecified; Z79.899 Other long term (current) drug therapy
CPT/HCPCS: 52332; 36415; 76775; 80048; 80076; 81001; 85025; 86140; 96360; 96372; 99285; C1758; C1769; J1170; J1885; J2060; J2704; J3010; Q9967

== ENCOUNTER → 2023-07-01 06:33 | Outpatient (BNV) | payer OTHER, SELFPAY | PROVIDERS: Emergency Provider Emergency Medicine; PCP Nurse Practitioner Family; Visit Provider Urology | DX: N20.1 Calculus of ureter (principal); R10.9 Unspecified abdominal pain | CPT/HCPCS: 52332; 74420; 99283 ==

== ENCOUNTER 2023-07-02 02:33 | Emergency (ER) | payer OTHER, SELFPAY ==
--- NOTE | ~2023-07-02 | XR_ITS ---
EXAMINATION: XR ABDOMEN KUB CLINICAL INDICATION: Stent placement COMPARISON: CT 06/29/2023 TECHNIQUE: AP view of the abdomen. FINDINGS: A right-sided ureteral stent is present with the upper end overlying the expected location of the renal pelvis and the lower end overlying the expected region of the bladder. Calculus overlying the lower right kidney measures approximately 7 mm in length. Few additional bilateral renal calculi are again noted, though overall better seen on recent CT. Bowel gas pattern is nonobstructive. Mild to moderate volume of stool. Included lung bases are well aerated. No acute osseous findings are seen. XR/XR KUB IMPRESSION: Right-sided ureteral stent in place. Bilateral renal calculi, better seen on recent CT, measuring up to 7 mm overlying the lower right kidney.
--- NOTE | 2023-07-02 02:41 | ED.MALEGU ---
HPI - Male Genitourinary General Chief complaint: Urogenital-Male Stated complaint: urinating blood Time Seen by Provider: 07/02/23 02:40 Source: patient, EMS and old records reviewed Mode of arrival: EMS Limitations: no limitations History of Present Illness HPI Narrative: 27 yo male just left at 8pm has double j stent for R UPJ stone 7mm placed by Dr. Prado. He panicked after he went home and urinated blood with some clots. He is able to urinate. He has some mild R sided pain. He is having PTSD. He wasn't sure what he should do as he tried to call the urology team but no calls back. He threw up x 1. This is his first stent placement. MD Complaint: other (hematuria after stent placement) Onset (ago): hour(s) (since discharge around 8pm) Duration: constant Location: penis Radiation: penis Severity: mild Quality: burning Relieving factors: none Exacerbating factors: urination Context: recent surgery Associated symptoms: Reports blood in urine and dysuria Related Data Home Medications ?Medication ?Instructions ?Recorded ?Confirmed cholecalciferol (vitamin D3) 25 25 mcg PO DAILY 07/01/23 07/01/23 mcg (1,000 unit) tablet cyanocobalamin (vitamin B-12) 1,000 mcg PO DAILY 07/01/23 07/01/23 1,000 mcg tablet gabapentin 600 mg tablet 600 mg PO BEDTIME 07/01/23 07/01/23 melatonin 5 mg tablet 5 mg PO BEDTIME Insomnia 07/01/23 07/01/23 mirtazapine 15 mg tablet 7.5 mg PO DAILY 07/01/23 07/01/23 mirtazapine 15 mg tablet 37.5 mg PO BEDTIME 07/01/23 07/01/23 zolpidem 5 mg tablet (Ambien) 5 mg PO BEDTIME PRN Insomnia 07/01/23 07/01/23 Previous Rx's ?Medication ?Instructions ?Recorded oxycodone 5 mg tablet 5 mg PO Q8H PRN pain #9 tabs 06/29/23 naproxen 500 mg tablet 500 mg PO BID PRN pain 7 days #14 07/01/23 tabs phenazopyridine 100 mg tablet 100 mg PO TID PRN Spasm 4 days #12 07/01/23 (Pyridium) tabs tamsulosin 0.4 mg capsule 0.4 mg PO BEDTIME 14 days #14 caps 07/01/23 Allergies Allergy/AdvReac Type Severity Reaction Status Date / Time No Known Allergies Allergy Verified 07/02/23 02:50 Review of Systems Review of Systems: Constitutional : No Fever, No Chills ENT/Mouth : No sore throat Eyes: No Eye Pain, No Swelling, No Redness Cardiovascular : No Chest Pain, No SOB Respiratory : No Cough, No Sputum, No Wheezing Gastrointestinal : positive Nausea, positive Vomiting, No Diarrhea, positive abdominal pain Genitourinary : positive Dysuria, positive urinary frequency, positive Hematuria, positive Flank Pain Musculoskeletal : No joint pain, No Myalgias Skin : No Skin Lesions, No rash Neuro : No Weakness, No Numbness, No Headache Psych : No Anxiety/Panic, No Depression Heme/Lymph: No Bruising, No Lymphadenopathy Endocrine : No Polyuria, No Polydipsia All other systems reviewed and are negative [facility] Past Medical History Attestation statement: The following information was validated with the patient. Source: old records reviewed Medical History Post traumatic stress disorder (PTSD) Social History Social History Alcohol intake: never Patient Tobacco Use Status: Current everyday Tobacco user Tobacco use type: Smokeless Tobacco Smoked in Last 30 Days: No Use of substances other than those prescribed or required for medical reasons: Yes Substance Use Type: Marijuana Substance Use Frequency: Daily Advance Directives: No Advance Directives Information Provided: No Do you have a plan to hurt others: No Plan Physical Exam Vital Signs: Vital Signs: Last Vital Signs Temp 98.3 F 07/02/23 02:46 Pulse 74 07/02/23 02:46 Resp 16 07/02/23 02:46 BP 133/80 07/02/23 02:46 Pulse Ox 100 07/02/23 02:46 O2 Del Method Room Air 07/02/23 02:46 BMI result Body Mass Index 20.0 Appearance: Alert. Oriented X3. No acute distress. Eyes: Pupils equal, round and reactive to light. ENT: Pharynx normal. Neck: Normal inspection. Neck supple. CVS: Normal heart rate and rhythm. Pulses normal. Respiratory: No respiratory distress. Breath sounds normal. Abdomen: Soft and very mild R sided ttp no rebound Skin: Skin warm and dry. Normal skin color. Normal skin turgor. Extremities: No lower extremity edema. No calf ttp Neuro: Oriented X 3. No motor deficit. No sensory deficit. Course Course Course Narrative: will dose x one with levofloxacin given UA but suspect the blood is cause of nitrates will wait on culture he feels fine stable for DC can follow up with urology he is asking to leave does not want to wait Medications Administered Discontinued Medications Generic Name Dose Route Start Last Admin Trade Name Aly PRN Reason Stop Dose Admin Ondansetron HCl 4 mg 07/02/23 02:47 07/02/23 03:05 Ondansetron Odt 4 Mg Tab.Rapdis TRANSLINGU 07/02/23 02:48 4 mg ONCE ONE Administration Medical Decision Making Medical Decision Making [facility] Narrative: 27 yo male with recent double J stent s/p 7mm R UPJ stone came in due to seeing blood and some clots in urine at this time will need KUB to evaluate stents - VS stable no fevers able to urinate, abdomen very minimal R sided ttp not toxic appearing. Differential Diagnosis Differential Diagnoses: The differential diagnosis associated with the presentation includes post ureteral stent bleeding, renal colic Lab Data [facility] Lab Attestation statement: I reviewed the patient's lab results. Labs: Lab Results 07/02/23 Range/Units 03:36 Urine Color RED Urine Appearance Hazy Urine pH 5.5 (5.0-9.0) Ur Specific [place] 1.015 (1.005-1.025) Urine Protein 300 (3+) H (Neg-Trace) mg/dL Urine Glucose (UA) Negative (Negative) mg/dL Urine Ketones Negative (Negative) mg/dL Urine Blood Large (3+) H (Negative) Urine Nitrite Positive H (Negative) Ur Leukocyte Esterase Small (1+) H (Negative) Urine RBC >20 H (0-2) /HPF Urine WBC 11-20 H (0-5) /HPF Ur Squamous Epith Cells 0-2 (0-2) /HPF Urine Bacteria None Seen (None Seen) Hyaline Casts 0-2 (0-2) /LPF Independent Interpretation I performed an independent interpretation of an: Plain X-Ray Radiology Impression Discussion of test interpretation with radiology: I have reviewed the radiologist's reading. Independent Historian Clinical information obtained from an independent historian. History obtained from or confirmed by: EMS External Record Review External record reviewed: Inpatient record Discharge Plan Discharge Clinical Impression: Hematuria Qualifiers: Hematuria type: gross Qualified Code(s): R31.0 - Gross hematuria Patient Disposition: Home, Self-Care Instructions: Hematuria (ED) Additional Instructions: return for fevers, vomiting unable to void call Dr. Prado in AM Prescriptions: No Action oxycodone 5 mg tablet 5 mg PO Q8H PRN (Reason: pain) Qty: 9 0RF Rx Instructions: Partial Fill upon patient request. mirtazapine 15 mg Tablet 37.5 mg PO BEDTIME mirtazapine 15 mg Tablet 7.5 mg PO DAILY gabapentin 600 mg Tablet 600 mg PO BEDTIME cyanocobalamin (vitamin B-12) 1,000 mcg Tablet 1,000 mcg PO DAILY zolpidem [Ambien] 5 mg Tablet 5 mg PO BEDTIME PRN (Reason: Insomnia) cholecalciferol (vitamin D3) 25 mcg (1,000 unit) Tablet 25 mcg PO DAILY melatonin 5 mg Tablet 5 mg PO BEDTIME tamsulosin 0.4 mg capsule 0.4 mg PO BEDTIME 14 Days Qty: 14 0RF phenazopyridine [Pyridium] 100 mg tablet 100 mg PO TID PRN (Reason: Spasm) 4 Days Qty: 12 0RF naproxen 500 mg tablet 500 mg PO BID PRN (Reason: pain) 7 Days Qty: 14 0RF Print Language: Lithuanian
[2023-07-02 02:46] VITALS: BP 133/80; BP 156/92; PULSE 74; PULSE 90; RESP 16; TEMP 36.8; O2SAT 100; O2SAT 98
[2023-07-02] MEDS: Ondansetron ODT 4 MG TAB.RAPDIS TRANSLINGU (03:05)
[2023-07-02 03:42] LABS: Appearance Urine Hazy; Glucose Urine UA Negative (Negative); Leukocyte Esterase Urine Small (1+) (Negative); Nitrite Urine Positive (Negative); PH 5.5 (5.0-9.0); Specific Gravity - Urine 1.015 (1.005-1.025); UMIC TRIGGER UACC YES; Urine Blood Large (3+) (Negative); Urine Ketones Negative (Negative); Urine Protein 300 (3+) mg/dL (Neg-Trace)
[2023-07-02 03:43] LABS: Color Urine RED
[2023-07-02 03:56] LABS: Bacteria Urine None Seen (None Seen); Hyaline Casts Urine 0-2 /LPF (0-2); RBC Urine >20 /HPF (0-2); Squamous Epithelial Cell Urine 0-2 /HPF (0-2); UACC Culture Trigger YES
[2023-07-02] MEDS: levoFLOXacin 750 MG TABLET PO (04:21)
[2023-07-02 04:26] VITALS: BP 133/80; PULSE 74; RESP 16; TEMP 36.8; O2SAT 100
== END 2023-07-02 04:27 | disposition home or self-care (01) ==
PROVIDERS: Emergency Provider Emergency Medicine; PCP Nurse Practitioner Family
DX: R31.0 Gross hematuria (principal); Z96.0 Presence of urogenital implants; Z98.890 Other specified postprocedural states
CPT/HCPCS: 74018; 81001; 87086; 99283; 99284

== ENCOUNTER 2023-07-09 14:26 | Outpatient (AMB) | payer OTHER, SELFPAY ==
--- NOTE | 2023-07-09 14:46 | MHC.OFFVIS ---
Intake Visit Reasons: ER follow up/Discuss next Procedure Intake Note: Patient is Present for Follow Up to discuss options Allergies No Known Allergies Allergy (Verified 07/02/23 02:50) HPI Comments Details: Greg is a pleasant male. He has a patient of . She is seen for the following urologic conditions - nephrolithiasis Recent hospital admission with stone Procedure Discussed upcoming ESWL with stent removal Nephrolithiasis Initial presentation through emergency room with right persistent pain Father had stone Had significant weight loss in past Imaging - 07/18 7 mm calculus at the UPJ right side with right hydronephrosis Underwent cystoscopy, retrograde, stent placement [facility] Medical History (Updated 07/09/23 @ 15:07 by Anthony Angulo MD) Calculus of kidney Post traumatic stress disorder (PTSD) Social History Alcohol intake: never Patient Tobacco Use Status: Current everyday Tobacco user Tobacco use type: Smokeless Tobacco Substance Use Type: Marijuana Review of Systems Const Denies chills and Denies fever(s) Card Reports no additional complaints and Denies syncope Resp Denies cough GI Denies abdominal pain and Denies heartburn Reports as per HPI and Denies change in libido Neuro Denies syncope Psych Denies change in libido Endo Denies change in libido Physical Exam Const General: cooperative, healthy appearing, comfortable and no acute distress Orientation/consciousness: patient oriented x3 HEENT Face and sinus: Yes normal facial exam Mouth: moist mucous membranes Neck Neck: Yes normal visual inspection, Yes full ROM and Yes trachea midline Chest Chest palpation & inspection: normal inspection of the chest Resp Effort & Inspection: normal respiratory effort, able to speak in complete sentences and no respiratory distress GI Inspection: Yes normal to inspection Back/Spine/Pelvis Cervical Spine: normal cervical lordosis Thoracic/Lumbar Spine: thoracic and lumbar spine normal to inspection Skin General skin exam: no rashes or lesions noted Neuro General: patient oriented x3, gait normal, tone normal and moves all extremities Extrem General: Yes normal to inspection and Yes capillary refill normal Assessment & Plan Assessment & Plan (1) Calculus of kidney: Code(s): N20.0 - Calculus of kidney Category: Medical Plan Plan ESWL Risks, benefits and alternatives to therapy were discussed. These include but are not limited to infection, bleeding, damage to local organs and tissues, need for further interventions. Anesthetic risks regarding cardiac arrhythmia, blood clots, and potential mortality were discussed. The patient understands the typical recovery time and the outpatient nature of the procedure. After consideration of these risks the patient gives full informed consent and they wish to move ahead with the procedure. Right ESWL with stent removal Patient Instructions: Imaging studies, laboratory and physical exam results were discussed and reviewed in detail. No major barriers to patient understanding were identified. An opportunity to ask questions regarding the treatment plan was provided. All questions were answered. The patient expressed understanding and agreement with the above treatment plan. The patient is aware they should contact our office by phone for worsening of their current condition or the appearance of new urologic symptoms. Compliance is encouraged with any medications and followup testing that is ordered. It is a privilege to participate in the urologic care of your patient. If you have any questions or concerns regarding treatment for the above conditions, or other urologic issues, please do not hesitate to contact me. The office telephone contact is [phone]. This note is constructed using voice recognition software. While every effort has been made to ensure accuracy director of software development errors may have been included. Yours sincerely, Dr Anthony Angulo MD, [facility] - Urology Providers of Expert, Compassionate Care for the Genitourinary System Coding Level of Care Code Est Pt Level 4 (68435) Diagnoses Calculus of kidney N20.0
== END 2023-07-09 15:15 | disposition home or self-care (01) ==
PROVIDERS: PCP Nurse Practitioner Family; Visit Provider Urology
DX: N20.0 Calculus of kidney (principal)
CPT/HCPCS: 99214

== ENCOUNTER → 2023-07-09 14:26 | Outpatient (BNVA) | payer OTHER, SELFPAY | PROVIDERS: PCP Nurse Practitioner Family; Visit Provider Urology | DX: N20.0 Calculus of kidney (principal) | CPT/HCPCS: 99212 ==

== ENCOUNTER 2023-08-14 06:56 | Day surgery (SDC) | payer OTHER, SELFPAY ==
--- NOTE | 2023-08-12 13:28 | HO.ANESPROP2 ---
HPI - Anesthesia Eval Consult details Narrative: 27yo M for Right Lithotripsy ESW, Cystoscopy & Stent Removal s/p cysto etc 06/2023 with GA-LMA 4 PMFSH Active Problems Active Problems: All Active Problems Calculus of kidney (Acute) Acute right flank pain (Acute) Past Medical History Medical History Calculus of kidney Post traumatic stress disorder (PTSD) Family History Family history of problems with anesthesia: No Surgical History History of Problems with Anesthesia: No Social History Social History Alcohol intake: never Patient Tobacco Use Status: Current everyday Tobacco user Tobacco use type: Smokeless Tobacco Substance Use Type: Marijuana Meds Allergies Allergy/AdvReac Type Severity Reaction Status Date / Time No Known Allergies Allergy Verified 08/14/23 08:08 Home Medications ?Medication ?Instructions ?Recorded ?Confirmed ?Last Taken ?Type cholecalciferol (vitamin D3) 25 25 mcg PO DAILY 07/01/23 08/14/23 08/13/23 20:00 History mcg (1,000 unit) tablet cyanocobalamin (vitamin B-12) 1,000 mcg PO DAILY 07/01/23 08/14/23 08/13/23 20:00 History 1,000 mcg tablet gabapentin 600 mg tablet 600 mg PO BEDTIME 07/01/23 08/14/23 08/13/23 20:00 History melatonin 5 mg tablet 5 mg PO BEDTIME Insomnia 07/01/23 08/14/23 08/13/23 20:00 History mirtazapine 15 mg tablet 7.5 mg PO DAILY 07/01/23 08/14/23 08/13/23 20:00 History mirtazapine 15 mg tablet 37.5 mg PO BEDTIME 07/01/23 08/14/23 08/13/23 20:00 History zolpidem 5 mg tablet (Ambien) 5 mg PO BEDTIME PRN Insomnia 07/01/23 08/14/23 08/13/23 22:30 History Exam Pertinent Lab Results Pertinent Lab Results: Laboratory Tests 07/01/23 08:30 WBC 9.8 Hgb 13.0 L Hct 37.7 L Plt Count 175 D Sodium 141 Potassium 3.9 Chloride 104 Carbon Dioxide 28 BUN 8 L Creatinine 1.04 Assessment and Plan Assessment Anesthesia Assessment: Chart Reviewed Final Anesthetic Review Family History of Problems with Anesthesia: No History of Problems with Anesthesia: No
--- NOTE | ~2023-08-14 | XR_ITS ---
EXAMINATION: XR ABDOMEN KUB CLINICAL INDICATION: Right renal lithotripsy COMPARISON: KUB on 07/02/2023 TECHNIQUE: AP view of the abdomen. FINDINGS: AP supine x-rays of the abdomen show nonspecific bowel gas pattern. Air filled colon is seen. A persistent 0.9 x 0.4 cm elliptical calculus is seen in right lower renal pole. Left renal region is markedly obscured by overlapping bowel gas and left transverse colon fecal shadows. The previously visualized calculus could not be discerned on the current examination. No interval change in position of right ureteric double pigtail stent. Surgical clips are seen in right iliac fossa and right pelvic cavity. XR/XR KUB IMPRESSION: 1. Persistent 0.9 x 0.4 cm elliptical calculus in right lower renal pole. 2. No interval change in position of right ureteric double pigtail stent.
[2023-08-14 08:07] VITALS: BMI 18.9
[2023-08-14] MEDS: levoFLOXacin 500 MG TABLET PO (08:12)
[2023-08-14] MEDS: Lactated Ringers 1,000 ML 999 ML IV (08:36)
--- NOTE | 2023-08-14 08:39 | MHC.SHP ---
Pre-Procedural Eval Section A - 24 Hr Update-Section A only Date of Service: 08/14/23 The patient is an INPATIENT: No Changes since office visit: No Cold of Flu in the past 2 weeks, No New Medical Problems, No Changes in Medication and No Patient answered all questions The patient has been examined within 24 hours of the surgical procedure. The History & Physical has been completed within 30 days and I have reviewed it.: No Section B - Complete if H&P > 30 days Chief Complaint: Calculus of ureter Details of Present Illness: right renal stone with indwelling stent Relevant Social History: None Present Medications: None Medical History: No relevant PMH History of Previous Operations: Relevant previous surgery/procedure and date(s) Allergies: Allergies Allergy/AdvReac Type Severity Reaction Status Date / Time No Known Allergies Allergy Verified 08/14/23 08:08 Review of Systems Sugical H&P ROS: Negative: Constitution, Cardiovascular, Respiratory, Neurological, Psychiatric, Hem-Onc, Allergic/Immunologic, Gastrointestinal, Genitourinary, Musculoskeletal, Integumentary, Endocrine and Eyes/Ears/Nose/Throat Exam Surgical H&P Exam: Normal: HEENT, Normal: Heart, Normal: Lungs, Normal: Extremities, Normal: Abdomen, Normal: Skin and Normal: Neurological Plan Diagnosis/Plan: Unchanged (right eswl with cystoscopy and stent removal) I have reviewed the history and physical and performed a pertinent physical examination on my patient. No changes have occurred unless specified. Time Spent With Patient Time: Total time managing care of this patient today ____ minutes.
--- NOTE | 2023-08-14 09:13 | W.PM.OPN ---
Operative Note Operative Note Date of Service: 08/14/23 Narrative: PreOperative Diagnosis: right Renal stones with cysto stent removal Post Operative Diagnosis: Right Renal stones with cysto stent removal Procedure: Right ESWL with cysto stent removal Surgeon: Dr Anthony Angulo Anesthesia: mac/sedation Indications for procedure: The patient understands ESWL may be a staged procedure and subsequent intervention may be required based on imaging after ESWL. Quoted stone clearance rates for a solitary procedure are in the 70-80% range based primarily on stone location. They also understand there is a risk of bleeding to the kidney, infection, damage to adjacent organs, and stone migration following the procedure. - Imaging 7 mm right UPJ Procedure optimization has been performed with IV acetaminophen given in the holding area and 1 L of lactated Ringer's to be given in order to optimize the fluid-stone interface. 20 mg of IV Lasix will be given in the last 5 minutes of the procedure to optimize stone clearance. Procedure: After informed consent was verified the patient was brought to the operating room and placed in a supine position. Anesthesia was performed per protocol. Safety pause time-out was performed. Imaging was displayed in the room and laterality confirmed. ESWL was performed. The 1st 500 shocks were performed at 60 hertz. These were performed with increasing power. Once maximum power was reached the rate was increased to 180 hertz. A total of 2500 shocks were given. Targeted imaging with ultrasound/fluoroscopy showed stone smudging suggestive of disintegration. At completion of the ESWL flexible cystoscopy was performed. The stent was seen emerging from the right ureteric orifice and was grasped and removed. The patient tolerated the procedure well and was transferred to the recovery area upon completion. Post procedure imaging will be organized. There was no evidence for flank discoloration.
--- NOTE | 2023-08-14 09:24 | P.CONAN_ITS ---
[facility] Active Problems Active Problems: All Active Problems Calculus of kidney (Acute) Acute right flank pain (Acute) Past Medical History Medical History Calculus of kidney Post traumatic stress disorder (PTSD) Family History Family history of problems with anesthesia: No Surgical History History of Problems with Anesthesia: No Social History Social History Alcohol intake: never Patient Tobacco Use Status: Current everyday Tobacco user Tobacco use type: Smokeless Tobacco Substance Use Type: Marijuana Advance Directives: No Advance Directives Information Provided: Yes Meds Allergies Allergy/AdvReac Type Severity Reaction Status Date / Time No Known Allergies Allergy Verified 08/14/23 08:08 Active Medications: Current Medications Lactated Ringer's (Lr) 1,000 mls @ 100 mls/hr IVCONT .Q10H TRAVIS Home Medications ?Medication ?Instructions ?Recorded ?Confirmed ?Last Taken ?Type cholecalciferol (vitamin D3) 25 25 mcg PO DAILY 07/01/23 08/14/23 08/13/23 20:00 History mcg (1,000 unit) tablet cyanocobalamin (vitamin B-12) 1,000 mcg PO DAILY 07/01/23 08/14/23 08/13/23 20:00 History 1,000 mcg tablet gabapentin 600 mg tablet 600 mg PO BEDTIME 07/01/23 08/14/23 08/13/23 20:00 History melatonin 5 mg tablet 5 mg PO BEDTIME Insomnia 07/01/23 08/14/23 08/13/23 20:00 History mirtazapine 15 mg tablet 7.5 mg PO DAILY 07/01/23 08/14/23 08/13/23 20:00 History mirtazapine 15 mg tablet 37.5 mg PO BEDTIME 07/01/23 08/14/23 08/13/23 20:00 History zolpidem 5 mg tablet (Ambien) 5 mg PO BEDTIME PRN Insomnia 07/01/23 08/14/23 08/13/23 22:30 History Exam Height,Weight and Vital Signs: Height 5 ft 8 in Weight 56.245 kg Airway Mallampati Class: II TM Dist: >3cm Neck ROM: Full Heart: RRR Lungs: CTA Assessment and Plan Assessment Anesthesia Assessment: Anesthesia Plan Discussed Final Anesthetic Review Family History of Problems with Anesthesia: No History of Problems with Anesthesia: No NPO: Yes ASA Class: II Final Preanesthetic Review: Meds/Allgs Chart Reviewed, Consent Obtained/Reviewed and Anes Risks/Benef Reviewed Patient Risk: Low Procedure Risk: Low Anesthetic Plan Anesthetic Plan: MAC: Disposition: Standard PACU
[2023-08-14 10:05] VITALS: BP 133/66; PULSE 81; RESP 16; TEMP 36.2; O2SAT 96
[2023-08-14 10:20] VITALS: BP 116/70; PULSE 69; RESP 18; O2SAT 98
[2023-08-14 10:29] VITALS: TEMP 36.6
--- NOTE | 2023-08-14 12:13 | HO.POSTANES ---
Post Anesthesia Evaluation Post Anesthesia Evaluation Date of Service: 08/14/23 Vital Signs: Vital Signs Temp Pulse Resp BP Pulse Ox O2 Del Method 08/14/23 10:29 97.9 F 08/14/23 10:20 69 18 116/70 98 Room Air 08/14/23 10:05 97.1 F 81 16 133/66 96 Room Air Anesthesia: Monitored Mental Status: Awake Pain Control: Satisfactory Nausea/Vomiting: None Hydration: Adequate Anesthesia-Related Issues: No Anes. Related Issues
== END 2023-08-14 11:06 | disposition home or self-care (01) ==
PROVIDERS: PCP Nurse Practitioner Family; Visit Provider Urology
PROC: (CPT 50590; principal; 2023-08-14 08:50)
PROC: (CPT 52310; 2023-08-14 08:50)
DX: N20.0 Calculus of kidney (principal); F43.10 Post-traumatic stress disorder, unspecified; Z72.0 Tobacco use
CPT/HCPCS: 50590; 52310; 74018; J0131; J1100; J1940; J2250; J2405; J2704; J3010

== ENCOUNTER → 2023-08-14 06:56 | Outpatient (BNV) | payer OTHER, SELFPAY | PROVIDERS: PCP Nurse Practitioner Family; Visit Provider Urology | DX: N20.0 Calculus of kidney (principal) | CPT/HCPCS: 50590; 52310 ==

== ENCOUNTER 2023-08-30 13:31 | Emergency (ER) | payer OTHER, SELFPAY ==
[2023-08-30 13:35] VITALS: BP 116/82; PULSE 80; O2SAT 99
[2023-08-30 13:38] VITALS: BP 139/75; PULSE 83; RESP 18; TEMP 36.6; O2SAT 98; BMI 18.4
--- NOTE | 2023-08-30 13:38 | ED.GENADULT ---
HPI - General Adult General Chief complaint: Abdominal Pain Stated complaint: ABD PAIN Time Seen by Provider: 08/30/23 15:58 Source: patient Mode of arrival: ambulatory Limitations: no limitations History of Present Illness ED Provider: Destinee Reed PA-c HPI narrative: 27 y/o male with history of anxiety, PTSD, marijuana use, kidney stones, former alcohol abuse, s/p appendectomy in the past who presents to the ER for evaluation of constant aching LUQ and RLQ abdominal pains for the last 8 months. He reports intermittent queasiness, frequent mucousy diarrhea and decreased p.o. intake. He has been living on a diet of ensure plus along with bagels and sandwiches intermittently. He reports losing 20 lb in the last 8 months. He has been following with GI and is due for colonoscopy and endoscopy next week. He denies any vomiting or blood in his stools. He states the pain is worse when he is anxious and he gets frequent panic attacks. He has PTSD from when he was in active in [place], where he had appendix rupture and was admitted to the hospital for 1 year. 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 He weighed 240 lb at that time and now weighs 120. he goes to group therapy 4 times a week and is on Remeron and Benadryl for his anxiety. he denied any urinary symptoms, flank pain, chest pain, shortness of breath, fever, chills, constipation. he is not on any medications for his symptoms, he was formerly on Protonix but is no longer taking anything. MD complaint: Chronic abdominal pain, mucousy diarrhea Onset (ago): month(s) (8) Location: abdomen Radiation: non-radiation Quality: other ( Discomfort ) Pain Consistency: constant Exacerbating factors: other ( anxiety) Associated symptoms: loss of appetite and nausea/vomiting Treatments prior to arrival: none Related Data Home Medications ?Medication ?Instructions ?Recorded ?Confirmed cholecalciferol (vitamin D3) 25 25 mcg PO DAILY 07/01/23 08/14/23 mcg (1,000 unit) tablet cyanocobalamin (vitamin B-12) 1,000 mcg PO DAILY 07/01/23 08/14/23 1,000 mcg tablet gabapentin 600 mg tablet 600 mg PO BEDTIME 07/01/23 08/14/23 melatonin 5 mg tablet 5 mg PO BEDTIME Insomnia 07/01/23 08/14/23 mirtazapine 15 mg tablet 7.5 mg PO DAILY 07/01/23 08/14/23 mirtazapine 15 mg tablet 37.5 mg PO BEDTIME 07/01/23 08/14/23 zolpidem 5 mg tablet (Ambien) 5 mg PO BEDTIME PRN Insomnia 07/01/23 08/14/23 Previous Rx's ?Medication ?Instructions ?Recorded naproxen 500 mg tablet 500 mg PO BID PRN pain 7 days #14 08/14/23 tabs oxycodone-acetaminophen 5 mg-325 1 tab PO Q8H PRN pain 3 days #8 08/14/23 mg tablet tabs phenazopyridine 100 mg tablet 100 mg PO TID PRN Spasm 4 days #12 08/14/23 (Pyridium) tabs tamsulosin 0.4 mg capsule 0.4 mg PO BEDTIME 14 days #14 caps 08/14/23 ondansetron 4 mg disintegrating 4 mg PO Q8H PRN nausea and 08/30/23 tablet vomiting #14 tabs pantoprazole 40 mg tablet,delayed 40 mg PO DAILY #30 tabs 08/30/23 release (Protonix) Allergies Allergy/AdvReac Type Severity Reaction Status Date / Time No Known Allergies Allergy Verified 08/30/23 13:42 Review of Systems Review of Systems: Yes all other systems are reviewed and are negative PMFSH Past Medical History Medical History Calculus of kidney Post traumatic stress disorder (PTSD) Social History Social History Alcohol intake: former Patient Tobacco Use Status: Current everyday Tobacco user Tobacco use type: Smokeless Tobacco Smoked in Last 30 Days: No Use of substances other than those prescribed or required for medical reasons: Yes Substance Use Type: Marijuana Advance Directives: No Advance Directives Information Provided: No Do you have a plan to hurt others: No Plan Physical Exam ED Vital Signs: Vital Signs - 24 hr 08/30/23 13:38 08/30/23 16:25 08/30/23 17:09 Temperature 98 F 97.2 F 97.2 F Pulse Rate 83 64 64 Respiratory Rate 18 16 18 Blood Pressure 139/75 124/70 124/70 Pulse Oximetry 98 97 97 Oxygen Delivery Method Room Air Room Air Room Air BMI result Body Mass Index 18.4 Appearance: Alert. Oriented X3. No acute distress. thin and frail Head: normocephalic, atraumatic. Eyes: Pupils equal, round and reactive to light. ENT: Pharynx normal. No tonsillar swelling or exudate. Neck: Normal inspection. Neck supple. CVS: Normal heart rate and rhythm. Pulses normal. Respiratory: No respiratory distress. Breath sounds normal. Abdomen: Thin, Soft with mild tenderness to deep palpation in the periumbilcal area, normal active +BS x4 Skin: Skin warm and dry. Normal skin color. Normal skin turgor. No rashes. Extremities: No lower extremity edema. No joint swelling. Neuro/psych: Oriented X 3. No motor deficit. No sensory deficit. CN II-XII intact. Normal speech and cognition. anxious Course Course Course Narrative: This is an RME done by KEHINDE Landrum: Additional HPI, ROS, PE not included below will be deferred to primary provider. 27 yo male with a past medical history of kidney stones and anxiety with panic attacks presenting with abdominal pain and nausea. Reports weight loss, decreased appetite, and diarrhea over past 8 months, has colonoscopy and endoscopy scheduled. Appearance: Alert.? Oriented X3.? No acute cardiopulmonary distress distress.? Head: Normocephalic, atraumatic, no step-offs or deformities Neck: Normal inspection.? Neck supple.? CVS: Pulses normal.? Respiratory: No respiratory distress.? Abdomen: Soft and nontender.? Skin: ? Normal skin color. Extremities: 5/5 strength to bilateral upper and lower extremities Neuro: Oriented X 3.? No motor deficit.? No sensory deficit. Medical Decision Making Medical Decision Making MDM Narrative: 27-year-old male with history of PTSD, anxiety, history of appendectomy in the past who presents to the ER for evaluation of chronic abdominal pain for the last 8 months associated with mucousy diarrhea and panic attacks. Is currently being worked up with a surface to air weapons officer and is getting a endoscopy and colonoscopy next week. He has had no blood in his stools but has had frequent mucousy bowel movements. He had recent KUB and CT scans of his abdomen in June and July for kidney stone issues. They are unremarkable. On arrival to the ER patient is hemodynamically stable and afebrile. His abdominal exam is benign. his lab workup was unremarkable including normal LFTs and lipase. He has not been having any bloody bowel movements. His imaging from prior visits were reviewed. No need for emergent imaging today. Patient's symptoms seem to be stemming a lot from his anxiety and panic attacks. Will restart patient on pantoprazole and give trial of p.r.n. Zofran. Comfortable discharge home with GI follow-up, ongoing psych care. Return precautions were discussed and patient agrees with plan. Differential Diagnosis Differential Diagnoses: The differential diagnosis associated with the presentation includes Inflammatory bowel disease, irritable bowel disease, anxiety, celiac disease, lactose intolerance, failure to thrive, SIBO Lab Data MDM Lab Attestation statement: I reviewed the patient's lab results. no leukocytosis, normal renal function, normal LFTs and lipase. 08/30/23 13:59 08/30/23 13:59 Labs: Lab Results 08/30/23 08/30/23 Range/Units 13:59 16:31 WBC 9.2 (4.8-10.8) X10*3/uL RBC 4.75 (4.60-5.80) X10*6/uL Hgb 15.0 (14.0-18.0) g/dl Hct 43.3 (42.0-52.0) % MCV 91.2 (80.0-98.0) fL MCH 31.6 (27.0-33.0) pg MCHC 34.6 (31.0-36.0) g/dl RDW 12.9 (11.0-16.0) % Plt Count 226 D (160-400) X10*3/uL MPV 10.4 (9.4-12.4) fL Immature Gran % (Auto) 0.3 (0.0-0.4) % Neut % (Auto) 85.0 H (45-73) % Lymph % (Auto) 10.3 L (20-40) % [place] % (Auto) 4.0 (2-11) % Eos % (Auto) 0.1 (0-4) % Baso % (Auto) 0.3 (0-2) % Lymph # (Auto) 1.0 L (1.2-4.9) X10*3/uL [place] # (Auto) 0.4 (0.1-1.2) X10*3/uL Eos # (Auto) 0.0 (0.0-0.4) X10*3/uL Baso # (Auto) 0.0 (0.0-0.2) X10*3/uL Abs Immat Gran (auto) 0.03 (0.00-0.03) X10*3/uL Absolute Neuts (auto) 7.8 (2.0-8.3) x10*3/uL Absolute Nucleated RBC 0.000 (0.0-0.012) X10*3/uL Nucleated RBC % (auto) 0.0 (0.0-0.2) /100WBC Sodium 142 (135-145) mmol/L Potassium 3.9 (3.3-5.1) mmol/L Chloride 103 (96-108) mmol/L Carbon Dioxide 30 H (22-29) mmol/L Anion Gap 13 (12-20) BUN 13 (9-16) mg/dL Creatinine 0.91 (0.5-1.4) mg/dL Estim Creat Clear Calc 95.3 Estimated GFR > 60 Random Glucose 107 (60-115) mg/dL Calcium 10.0 (8.4-10.2) mg/dL Total Bilirubin 0.5 (0.0-1.0) mg/dL AST 17 (5-37) U/L ALT 16 (0-40) U/L Alkaline Phosphatase 84 (39-117) U/L Total Protein 7.8 (6.5-8.0) g/dL Albumin 4.8 (3.5-5.0) g/dL Lipase 25 (8-78) U/L Urine Color Yellow Urine Appearance Clear Urine pH 7.5 (5.0-9.0) Ur Specific [place] <= 1.005 (1.005-1.025) Urine Protein Negative (Neg-Trace) mg/dL Urine Glucose (UA) Negative (Negative) mg/dL Urine Ketones Trace (Negative) mg/dL Urine Blood Negative (Negative) Urine Nitrite Negative (Negative) Ur Leukocyte Esterase Negative (Negative) Tests considered The following testing was considered but not selected: Considered getting a repeat CT scan of his abdomen however his abdominal exam was benign and low clinical suspicion for acute abdominal process today Prescription Management I considered prescription management with: Pain Medication and Other ( ppi, antiemetic) Chronic Conditions Patient?s care impacted by: Other ( anxiety and PTSD) Social Determinants Patient?s care significantly limited by Social Determinants of Health including: Other Social Determinant of Health Critical Care Time Critical Care Time Critical Care Time: No Discharge Plan Discharge Clinical Impression: Chronic abdominal pain, Anxiety Patient Disposition: Home, Self-Care Instructions: Anxiety (ED), Chronic Abdominal Pain (ED) Additional Instructions: Your workup today was reassuring. It is important that you follow-up with GI for your colonoscopy and endoscopy next week. Recommend starting the prescribed antacid medication, take this 1st thing every morning. Take the prescribed nausea medication as needed. Slowly start to increase your diet and p.o. intake as tolerated. It is important to continue treatment for your anxiety as this may be contributing to your chronic abdominal issues. If you develop new or worsening symptoms call 911 or come back to the ER for further evaluation. Prescriptions: New pantoprazole [Protonix] 40 mg tablet,delayed release (DR/EC) 40 mg PO DAILY Qty: 30 0RF ondansetron 4 mg tablet,disintegrating 4 mg PO Q8H PRN (Reason: nausea and vomiting) Qty: 14 0RF No Action oxycodone-acetaminophen 5-325 mg tablet 1 tab PO Q8H PRN (Reason: pain) 3 Days Qty: 8 0RF Rx Instructions: Partial Fill upon patient request. tamsulosin 0.4 mg capsule 0.4 mg PO BEDTIME 14 Days Qty: 14 0RF phenazopyridine [Pyridium] 100 mg tablet 100 mg PO TID PRN (Reason: Spasm) 4 Days Qty: 12 0RF naproxen 500 mg tablet 500 mg PO BID PRN (Reason: pain) 7 Days Qty: 14 0RF mirtazapine 15 mg Tablet 37.5 mg PO BEDTIME mirtazapine 15 mg Tablet 7.5 mg PO DAILY gabapentin 600 mg Tablet 600 mg PO BEDTIME cyanocobalamin (vitamin B-12) 1,000 mcg Tablet 1,000 mcg PO DAILY zolpidem [Ambien] 5 mg Tablet 5 mg PO BEDTIME PRN (Reason: Insomnia) cholecalciferol (vitamin D3) 25 mcg (1,000 unit) Tablet 25 mcg PO DAILY melatonin 5 mg Tablet 5 mg PO BEDTIME Referrals: Niki Srivastava MD [Primary Care Provider] - Interventions: ED Discharge Assessment Last Done: 08/30/23 17:09 Discharge Date/Time: 08/30/23 17:10 Print Language: Maori
[2023-08-30 14:02] LABS: MANUAL DIFF FLAG NO
[2023-08-30 14:04] LABS: Basophils Percent Auto 0.3 % (0-2); Eosinophils Percent Auto 0.1 % (0-4); Hematocrit 43.3 % (42.0-52.0); Imm Gran Abs Auto 0.03 X10*3/uL (0.00-0.03); Imm Gran Pct Auto 0.3 % (0.0-0.4); Lymphocytes Percent Auto 10.3 % (20-40); Mean Corpuscular HGB Conc 34.6 g/dl (31.0-36.0); Mean Corpuscular Hemoglobin 31.6 pg (27.0-33.0); Mean Corpuscular Volume 91.2 fL (80.0-98.0); Mean Platelet Volume 10.4 fL (9.4-12.4); Monocytes Absolute Auto 0.4 X10*3/uL (0.1-1.2); Neutrophils Absolute Auto 7.8 x10*3/uL (2.0-8.3); Platelet Count 226 X10*3/uL (160-400); Red Blood Count 4.75 X10*6/uL (4.60-5.80); Red Cell Distribution Width 12.9 % (11.0-16.0); White Blood Count 9.2 X10*3/uL (4.8-10.8)
[2023-08-30 14:20] LABS: Alanine Aminotransferase 16 U/L (0-40); Albumin Level 4.8 g/dL (3.5-5.0); Alkaline Phosphatase 84 U/L (39-117); Anion Gap 13 (12-20); Aspartate Amino Transferase 17 U/L (5-37); Bilirubin Total 0.5 mg/dL (0.0-1.0); Blood Urea Nitrogen 13 mg/dL (9-16); Carbon Dioxide 30 mmol/L (22-29); Chloride 103 mmol/L (96-108); Creatinine Clr Calc Pharmacy 95.3; Estimated Glomerular Filt Rate > 60; Glucose Random 107 mg/dL (60-115); Lipase 25 U/L (8-78); Potassium 3.9 mmol/L (3.3-5.1); Sodium 142 mmol/L (135-145); Total Protein 7.8 g/dL (6.5-8.0)
[2023-08-30 16:25] VITALS: BP 124/70; PULSE 64; RESP 16; TEMP 36.2; O2SAT 97
[2023-08-30 16:41] LABS: Appearance Urine Clear; Color Urine Yellow; Glucose Urine UA Negative (Negative); Leukocyte Esterase Urine Negative (Negative); Nitrite Urine Negative (Negative); PH 7.5 (5.0-9.0); Specific Gravity - Urine <= 1.005 (1.005-1.025); Urine Blood Negative (Negative); Urine Ketones Trace mg/dL (Negative); Urine Protein Negative (Neg-Trace)
[2023-08-30 17:09] VITALS: BP 124/70; PULSE 64; RESP 18; TEMP 36.2; O2SAT 97
== END 2023-08-30 17:10 | disposition home or self-care (01) ==
PROVIDERS: Physician Assistant; Emergency Provider Emergency Medicine; PCP Family Medicine
DX: G89.29 Other chronic pain (principal); R10.33 Periumbilical pain; F41.9 Anxiety disorder, unspecified; F43.10 Post-traumatic stress disorder, unspecified; Z79.899 Other long term (current) drug therapy; F17.200 Nicotine dependence, unspecified, uncomplicated
CPT/HCPCS: 36415; 80053; 81003; 83690; 85025; 99283; 99284

== ENCOUNTER 2023-09-24 14:27 | Outpatient (REF) | payer OTHER, SELFPAY ==
--- NOTE | ~2023-09-24 | US_ITS ---
EXAMINATION: US RETROPERITONEAL LIMITED (RENAL ONLY) CLINICAL INFORMATION: Calculus of kidney. COMPARISON: X-ray abdomen KUB 08/14/2023 and 07/02/2023. Renal ultrasound 07/01/2023. CT abdomen and pelvis 06/29/2023. TECHNIQUE: Real-time imaging of the kidneys. Limited visualization due to bowel gas. FINDINGS: RIGHT KIDNEY: 10.6 x 3.5 x 5.0 cm (SAG x AP x TRV). 0.2 cm lower pole calculus. Multiple tiny renal echogenic foci may represent vascular calcifications, artifact or tiny nonobstructive renal calculi. No hydronephrosis. Limited visualization. Renal cortical thickness is normal. LEFT KIDNEY: 10.4 x 5.4 x 5.6 cm (SAG x AP x TRV). Multiple renal calculi measuring up to 2 mm, including 2 midpole and 2 lower pole calculi. Multiple tiny renal echogenic foci may represent vascular calcifications, artifact or tiny nonobstructive renal calculi. No hydronephrosis. Limited visualization. Renal cortical thickness is normal. US/US renal BI IMPRESSION: Bilateral renal nephrolithiasis. No hydronephrosis.
== END 2023-09-24 14:28 | disposition home or self-care (01) ==
LOC: HO.US 14:27
PROVIDERS: PCP Family Medicine; Visit Provider Urology
DX: N20.0 Calculus of kidney (principal)
CPT/HCPCS: 76775

== ENCOUNTER 2023-10-30 14:47 | Outpatient (AMB) | payer OTHER, SELFPAY ==
--- NOTE | 2023-10-30 14:50 | MHC.OFFVIS ---
Intake Visit Reasons: ESWL- follow up US(set) Intake Note: Patient is present for ESWL F/U Urology Medication:PYRIDIUM, NAPROXEN, TAMSULOSIN, VITAMIN B12 Antibiotic Allergy:NONE Blood Thinner:NONE Husbandry Person Required: No Allergies No Known Allergies Allergy (Verified 10/30/23 14:52) HPI Comments Details: Greg is a pleasant male. He has a patient of . She is seen for the following urologic conditions - nephrolithiasis Stone follow-up Renal ultrasound very small stones Recommend hyper filtration with 3 L fluid intake Six-month imaging Nephrolithiasis Initial presentation through emergency room with right persistent pain Father had stone Had significant weight loss in past Imaging - 07/18 7 mm calculus at the [facility] right side with right hydronephrosis Intervention - 09/17 right ESWL stent removal PFSH Medical History Calculus of kidney Post traumatic stress disorder (PTSD) Social History Alcohol intake: former Patient Tobacco Use Status: Current everyday Tobacco user Tobacco use type: Smokeless Tobacco Substance Use Type: Marijuana Review of Systems Const Denies chills and Denies fever(s) Card Reports no additional complaints and Denies syncope Resp Denies cough GI Denies abdominal pain and Denies heartburn Reports as per HPI and Denies change in libido Neuro Denies syncope Psych Denies change in libido Endo Denies change in libido Physical Exam Const General: cooperative, healthy appearing, comfortable and no acute distress Orientation/consciousness: patient oriented x3 HEENT Face and sinus: Yes normal facial exam Mouth: moist mucous membranes Neck Neck: Yes normal visual inspection, Yes full ROM and Yes trachea midline Chest Chest palpation & inspection: normal inspection of the chest Resp Effort & Inspection: normal respiratory effort, able to speak in complete sentences and no respiratory distress GI Inspection: Yes normal to inspection Back/Spine/Pelvis Cervical Spine: normal cervical lordosis Thoracic/Lumbar Spine: thoracic and lumbar spine normal to inspection Skin General skin exam: no rashes or lesions noted Neuro General: patient oriented x3, gait normal, tone normal and moves all extremities Extrem General: Yes normal to inspection and Yes capillary refill normal Assessment & Plan Assessment & Plan (1) Calculus of kidney: Code(s): N20.0 - Calculus of kidney Category: Medical Plan 90 oz fluid intake daily Patient Instructions: Imaging studies, laboratory and physical exam results were discussed and reviewed in detail. No major barriers to patient understanding were identified. An opportunity to ask questions regarding the treatment plan was provided. All questions were answered. The patient expressed understanding and agreement with the above treatment plan. The patient is aware they should contact our office by phone for worsening of their current condition or the appearance of new urologic symptoms. Compliance is encouraged with any medications and followup testing that is ordered. It is a privilege to participate in the urologic care of your patient. If you have any questions or concerns regarding treatment for the above conditions, or other urologic issues, please do not hesitate to contact me. The office telephone contact is [phone]. This note is constructed using voice recognition software. While every effort has been made to ensure accuracy indian blanket weaver errors may have been included. Yours sincerely, Dr Anthony Angulo MD, [facility] Providers of Expert, Compassionate Care for the Genitourinary System Coding Level of Care Code Est Pt Level 3 (13291) Diagnoses Calculus of kidney N20.0
== END 2023-10-30 15:24 | disposition home or self-care (01) ==
PROVIDERS: PCP Family Medicine; Visit Provider Urology
DX: N20.0 Calculus of kidney (principal)
CPT/HCPCS: 99024

== ENCOUNTER 2023-10-30 14:47 | Outpatient (REF) | payer OTHER, SELFPAY ==
[2023-11-09 02:13] LABS: Stone Source STONE
== END 2023-10-30 14:48 | disposition home or self-care (01) ==
LOC: HO.LNP 14:47
PROVIDERS: PCP Family Medicine; Visit Provider Urology
DX: N20.0 Calculus of kidney (principal)
CPT/HCPCS: 82365; 88300; 99212